=== PATIENT | female | born 1950 | race African-American/Black ===

== ENCOUNTER 2023-09-28 17:42 | Emergency (ER) | payer MEDICARE, MEDICAID, SELFPAY ==
[2023-09-28] VITALS (8 sets, daily range): BP systolic 129–177; BP diastolic 67–79; PULSE 65–89; RESP 15–20; TEMP 36.8; O2SAT 95–100
--- NOTE | ~2023-09-28 | XR_ITS ---
EXAMINATION: XR chest 1V portable Exam Date/Time: 09/28/2023 18:30 [employer]PORATE BUYER HISTORY: cp STABBING PAIN SINCE NOON HX OF HEART MURMUR Comparison: None. RESULT: Lines, tubes, and devices: None. Lungs and pleura: Clear. Cardiomediastinal silhouette: Unremarkable. Other: No acute osseous or upper abdominal finding. IMPRESSION: No acute cardiopulmonary process. Reviewed, dictated and finalized at location K. [employer]ATE BUYER
--- NOTE | 2023-09-28 17:43 | ECG_ITS ---
Measurements Intervals [place] Rate: 88 P: 69 IN: 195 QRS: -49 QRSD: 101 T: 78 QT: 353 QTc: 427 Interpretive Statements SINUS RHYTHM LEFT ANTERIOR FASCICULAR BLOCK BORDERLINE ST-T WAVE ABNORMALITY- HIGH LATERAL LEADS BASELINE ARTIFACT- I, II, III, AVR, AVL, AVF, V4-V6 ABNORMAL ECG NO PREVIOUS ECG AVAILABLE FOR COMPARISON Electronically Signed On 09-28-2023 18:34:06 ROUTE SUPERVISOR by Dutch Mcnulty D.O.
[2023-09-28 18:09] LABS: Basophils Percent Auto 0.5 % (0.2-1.2); Eosinophils Absolute Auto 0.1 K/mm3 (0-0.3); Eosinophils Percent Auto 1.3 % (0-4.4); Hematocrit 47.1 % (37.0-47.0); Hemoglobin 14.3 g/dL (12.0-15.0); Immature Granulocyte Absolute 0.01 K/mm3 (0.00-0.031); Immature Granulocyte Percent A 0.1 % (0-0.5); Lymphocytes Absolute Auto 2.98 K/mm3 (0.9-3.2); Lymphocytes Percent Auto 39.1 % (18.3-44.2); Mean Corpuscular HGB Conc 30.4 g/dl (32-36); Mean Corpuscular Volume 85.5 fl (80-100); Mean Platelet Volume 11.1 fl (7.4-10.4); Monocytes Absolute Auto 0.4 K/mm3 (0.1-0.6); Monocytes Percent Auto 5.6 % (2.6-8.5); Neutrophils Absolute Auto 4.1 K/mm3 (1.3-6.7); Neutrophils Percent Auto 53.4 % (45.5-73.1); Platelet Count Result 192 k/mm3 (150-375); Red Blood Count 5.51 M/mm3 (4.2-5.4); Red Cell Distribution Width 13.7 % (11.5-14.5); White Blood Count 7.6 K/mm3 (4.5-10.0)
--- NOTE | 2023-09-28 18:14 | ED.CHESTPAIN ---
HPI - Chest Pain General Chief Complaint: Chest Pain Stated Complaint: chest pains Time Seen by Provider: 09/28/23 17:57 History of Present Illness HPI narrative: 73-year-old female with a self-reported history of hypertension and prediabetes reports for evaluation for chest pain that started around 12:00 p.m. today. Patient states she woke up at noon and sat up in her bed and developed chest pain in her left anterior chest wall. She states it felt like someone was taking a knife through her left breast and was coming out the left side of her chest. She states the pain was worse with movement and significantly better when she was not moving. She states the pain lasted for approximately 5 hours. She was able to tell her family member who brought her to the ED but states her pain has resolved since just before she arrived to the ED. She denies associated diaphoresis, nausea, emesis, radiating pain, shortness of breath. She denies cough or congestion, fever, abdominal pain, BLE edema or leg pain. She reports taking aspirin and her hypertensive medications today. She denies known cardiac history. She does not smoke. Pt states she was on a medication for pre-diabetes , however her PCP discontinued it in November of 2022. She does endorse that her mother had a CVA When she was 18 years old. Again, she is asymptomatic now. Related Data Allergies Allergy/AdvReac Type Severity Reaction Status Date / Time No Known Allergies Allergy Verified 09/28/23 17:44 Review of Systems Review of Systems: CONSTITUTIONAL: Denies fever, chills, or sweats. EYES: Denies visual changes, redness, or discharge. ENT: Denies rhinorrhea, congestion, sore throat, or otalgia. CARDIOVASCULAR: see HPI RESPIRATORY: Denies cough or dyspnea. GASTROINTESTINAL: Denies abdominal pain, nausea, vomiting, or diarrhea. GENITOURINARY: Denies dysuria or hematuria. SKIN: Denies rash or itching. MUSCULOSKELETAL: Denies back pain, joint pain, or myalgia. NEUROLOGIC: Denies headache, numbness, or weakness. PSYCHIATRIC: Denies anxiety or depression. Exam Narrative: GENERAL: Well-appearing, well-nourished, and in no acute distress. patient resting comfortably in exam bed. She is pleasant and conversational. HEAD: Normocephalic, atraumatic. EYES: PERRLA and EOMI. ENT: Nares clear, no rhinorrhea or epistaxis. Mucous membranes moist. NECK: Supple. CHEST: Clear to auscultation. No respiratory distress. no tenderness to chest wall. Left breast is without masses, rash, fluctuation or induration. No lumps or bumps palpated. Nipple is everted. No nipple discharge. HEART: Regular rate and rhythm. No murmur heard. Normal peripheral pulses. ABDOMEN: Soft, nontender, nondistended, normal active bowel sounds. EXTREMITIES: Normal range of motion. No edema. Negative Homans bilaterally SKIN: Warm, dry, no rash. NEURO: No focal deficits. Alert and oriented x3 Course Vital Signs Vital signs: Vital Signs Temperature 98.2 F 09/28/23 17:50 Pulse Rate 88 09/28/23 17:50 Respiratory Rate 20 09/28/23 17:50 Blood Pressure 177/79 H 09/28/23 17:50 Pulse Oximetry 95 09/28/23 17:50 Oxygen Delivery Room Air 09/28/23 17:50 Temperature 98.2 F 09/28/23 17:50 Pulse Rate 82 09/28/23 18:30 Respiratory Rate 19 09/28/23 18:30 Blood Pressure 129/67 09/28/23 20:47 Pulse Oximetry 100 09/28/23 18:30 Oxygen Delivery Room Air 09/28/23 17:56 MDM - Chest Pain MDM Narrative Medical decision making narrative: 73-year-old female with history of prediabetes and hypertension reports for evaluation for chest pain today that has since resolved. See HPI for further history. Vitals significant for elevated blood pressure of 177/79, otherwise unremarkable. Patient is well-appearing on exam, see above. CBC without leukocytosis or anemia. Chemistry significant for potassium of 3.3, otherwise unremarkable. Magnesium is normal at 2.2. Potassium orally repl
[2023-09-28 18:18] LABS: Alanine Aminotransferase 21 U/L (6-35); Albumin Level 4.5 g/dL (3.5-5.1); Alkaline Phosphatase 96 U/L (38-126); Anion Gap 9 mmol/L (8-16); Aspartate Amino Transferase 22 U/L (14-36); Bilirubin,Total 0.7 mg/dL (0.2-1.3); Blood Urea Nitrogen 10 mg/dL (7-17); Calcium 10.1 mg/dL (8.4-10.2); Carbon Dioxide 29 mmol/L (22-30); Chloride 102 mmol/L (98-107); Estimated CRCL calculation 69 ml/min; Estimated Glomerular Filt Rate > 60; Glucose 156 mg/dL (65-110); Lipase 60 U/L (23-300); Potassium 3.3 mmol/L (3.4-5.0); Sodium 140 mmol/L (137-145)
[2023-09-28 18:27] LABS: Prothrombin Time 13.3 Seconds (11.1-14.7)
[2023-09-28 18:28] LABS: Partial Thromboplastin Time 27.4 SECONDS (22.3-36.8)
[2023-09-28] MEDS: POTASSIUM CHLORIDE 20 MEQ PACKET (FOR LIQUID) PO (18:28)
[2023-09-28 18:30] LABS: Troponin I < 0.012 ng/mL (0.000-0.034)
[2023-09-28 18:38] LABS: Magnesium 2.2 mg/dL (1.6-2.3); NT Pro B Type Natriuretic Pept 60 pg/mL (19.9-100)
--- NOTE | 2023-09-28 20:42 | ECG_ITS ---
Measurements Intervals [place] Rate: 73 P: 40 MI: 201 QRS: -26 QRSD: 98 T: -27 QT: 382 QTc: 421 Interpretive Statements SINUS RHYTHM DELAYED PRECORDIAL R/S TRANSITION BORDERLINE ST-T WAVE ABNORMALITY- HIGH LATERAL LEADS BASELINE ARTIFACT- II, III, AVR, AVL, AVF, V1, V3, V5-V6 BORDERLINE ECG COMPARED TO ECG 09/28/2023 17:55:27 NO SIGNIFICANT CHANGES Electronically Signed On 09-29-2023 10:24:37 ELECTRIC SPOT WELDER by Dutch Mcnulty D.O.
[2023-09-28 21:13] LABS: Troponin I < 0.012 ng/mL (0.000-0.034)
== END 2023-09-28 21:51 | disposition home or self-care (01) ==
PROVIDERS: Emergency Medicine; Emergency Provider Physician Assistant; PCP Family Medicine
DX: R07.89 Other chest pain (principal); E87.6 Hypokalemia; I10 Essential (primary) hypertension; R73.03 Prediabetes; I44.4 Left anterior fascicular block; R94.31 Abnormal electrocardiogram [ECG] [EKG]
CPT/HCPCS: 36415; 71045; 80053; 83690; 83735; 83880; 84484; 85025; 85610; 85730; 93005; 99284; A9270